=== PATIENT | female | born 1970 | race Asian ===

== ENCOUNTER 2017-10-13 17:20 | Emergency (ER) | payer OTHER ==
[~2017-10-13] VITALS: Ht 157.5 cm; Wt 68.2 kg
[~2017-10-13 17:20] MED LIST: BENICAR; COZAAR; LISINOPRIL; [UNRECOGNIZED DRUG - CODE] PO
[2017-10-13 17:38] VITALS: Ht 157.5 cm; Wt 68.2 kg
[2017-10-13] MEDS ORDERED: KETOROLAC 15 MG INJ IV STA (19:17)
[2017-10-13] MEDS ORDERED: SOD CHLORIDE 0.9% 1,000 ML IV STA (19:17)
--- NOTE | 2017-10-13 19:24 | ERD ---
ER Documentation Chief Complaint Chief Complaint Pt with CP and SOB X 3-4 days, lump to R axillary area. HPI 47-year-old woman complains of sharp nonexertional nonradiating right anterolateral chest pain, which she states radiates down to the right arm. She states the pain is also localized to the right lateral neck and radiates downward to the arm. She says she has had intermittent shortness of breath but denies shortness of breath in the ED. She states she feels a lump to the axillary area on the right. She has no personal or family history of breast carcinoma, no personal risk factors or family history of early coronary artery disease. She denies exertional pain, no cough, no fevers or chills, no vomiting or diarrhea. She states the pain is constant 3 days. She states she does exercise on a regular basis. Patient denies weight loss, no changes to the breast, no discharge from the breast or nipple. No recent trauma or domestic violence. ROS All systems reviewed and are negative except as per history of present illness. Medications Home Meds Active Scripts Tramadol HCl (Tramadol HCl) 50 Mg Tablet, 50 MG PO TID for PAIN AND/OR INFLAMMATION, #20 TAB Prov:JULIO RAMÍREZ MD 10/13/17 Reported Medications Acetaminophen with Codeine (Acetaminophen-Cod #3 Tablet) 1 Each Tablet, 2 TAB PO NEEDED, #7 TAB 10/13/17 Ibuprofen* (Ibuprofen*) 200 Mg Capsule, 600 MG PO Q6 Y for NEEDED, CAP 10/13/17 Amlodipine Besylate* (Norvasc*) 5 Mg Tablet, 2.5 MG PO DAILY, TAB 10/13/17 Carisoprodol* (Carisoprodol*) 350 Mg Tablet, 350 MG PO BID Y for MUSCLE SPASMS, TAB 10/13/17 Benazepril Hcl* (Benazepril Hcl*) 40 Mg Tablet, 40 MG PO BID, #30 TAB 10/13/17 Discontinued Reported Medications [Cozaar] No Conflict Check 02/04/12 [Benicar] No Conflict Check 02/04/12 [Lisinopril] No Conflict Check 02/04/12 Ciprofloxacin Hcl (Cipro) 250 Mg Tablet, 250 MG PO DAILY 11/17/11 Allergies Allergies: Coded Allergies: No Known Allergy (Unverified , 11/17/11) PMhx/Soc Hypertension History of Surgery: No Anesthesia Reaction: No Hx Neurological Disorder: No Hx Respiratory Disorders: No Hx Cardiac Disorders: Yes (HTN) Hx Psychiatric Problems: No Hx Miscellaneous Medical Probl: No Hx Alcohol Use: No Hx Substance Use: No Hx Tobacco Use: Yes FmHx Family History: No diabetes Physical Exam Vitals Vital Signs Date Time Temp Pulse Resp B/P Pulse Ox O2 Delivery O2 Flow Rate FiO2 10/13/17 20:54 97.7 20 99 Room Air 10/13/17 20:53 72 142/98 10/13/17 19:20 67 152/89 10/13/17 19:12 98.2 67 21 97 Room Air 10/13/17 17:38 98.0 77 18 180/95 100 Physical Exam GENERAL: Well-developed, well-nourished, well-hydrated, in no apparent distress , looks nontoxic in appearance HEENT: Moist mucous membranes, pink conjunctiva, no cervical spine tenderness or step-off deformities, no goiter, no jaundice or icterus, extraocular movements intact without pain. No submandibular induration, and no pharyngeal erythema NEURO: Alert and oriented 3, cranial nerves II through XII intact bilaterally, pupils equal round reactive to light, no focal deficits or facial asymmetry, sensation intact distally Strength 5/5 in upper and lower extremities bilaterally CARDIAC: Regular rate and rhythm, no murmurs rubs or gallops LUNGS: Clear bilaterally no wheezing crackles or stridor ABDOMEN: Soft nontender, no guarding, no rigidity, no rebound, no psoas sign no obturator sign. Normoactive bowel sounds SKIN: Warm and dry to touch, no abrasions, contusions, or hematomas, no lacerations, no ecchymosis, no target lesions, and without ulcers EXTREMITIES: No clubbing cyanosis or edema, calves are bilaterally symmetrical, no Homans sign, no popliteal cord sign. Distal pulses equal and bilateral PSYCH: Normal affect without agitation or irritability Result Diagram: 10/13/17193410/13/171934 Results 24 hrs Laboratory Tests Test 10/13/17 19:35 10/13/17 20:01 White Blood Count 8.910^3/ul Red Blood Count 4.3710^6/ul Hemoglobin 13.2g/dl Hematocrit 38.8% Mean Corpuscular Volume 88.8fl Mean Corpuscular Hemoglobin 30.2pg Mean Corpuscular Hemoglobin Concent 34.0g/dl Red Cell Distribution Width 13.0% Platelet Count 19657^3/UL Mean Platelet Volume 9.3fl Neutrophils % 60.9% Lymphocytes % 27.9% Monocytes % 6.6% Eosinophils % 3.5% Basophils % 0.7% Nucleated Red Blood Cells % 0.0/100WBC Neutrophils # 5.410^3/ul Lymphocytes # 2.510^3/ul Monocytes # 0.610^3/ul Eosinophils # 0.310^3/ul Basophils # 0.110^3/ul Nucleated Red Blood Cells # 0.010^3/ul Sodium Level 142mmol/L Potassium Level 3.9mmol/L Chloride Level 105mmol/L Carbon Dioxide Level 26mmol/L Anion Gap 15 Blood Urea Nitrogen 11mg/dl Creatinine 0.66mg/dl Glucose Level 97mg/dl Calcium Level 9.0mg/dl Total Bilirubin 0.1mg/dl Direct Bilirubin 0.00mg/dl Indirect Bilirubin 0.1mg/dl Aspartate Amino Transf (AST/SGOT) 30IU/L Alanine Aminotransferase (ALT/SGPT) 64IU/L Alkaline Phosphatase 84IU/L Troponin I < 0.012ng/ml Total Protein 7.7g/dl Albumin 4.5g/dl Globulin 3.20g/dl Albumin/Globulin Ratio 1.40 Lipase 22U/L Bedside Urine pH (LAB) 6.0 Bedside Urine Protein (LAB) Negative Bedside Urine Glucose (UA) Negative Bedside Urine Ketones (LAB) Negative Bedside Urine Blood Trace-intact Bedside Urine Nitrite (LAB) Negative Bedside Urine Leukocyte Esterase (L Negative Current Medications Medications (Trade) Dose Ordered Sig/Zaire Route PRN Reason Start Time Stop Time Status Last Admin Dose Admin Alprazolam 0.5 mg 0.5 mg ONCE ONCE PO 10/13/17 19:30 10/13/17 19:31 DC 10/13/17 19:55 Sodium Chloride (NS) 1,000 ml @ 1,000 mls/hr Q1H STAT IV 10/13/17 19:17 10/13/17 20:16 DC 10/13/17 19:55 Ketorolac Tromethamine (Toradol) 15 mg ONCE STAT IV 10/13/17 19:17 10/13/17 19:18 DC 10/13/17 20:00 Procedures/MDM IV line was established patient was placed on spareribs trimmer rhythm strip revealed a sinus rhythm at about 70 bpm with upright P and T waves. Patient was afebrile EKG performed, read by me: 70 bpm, normal sinus rhythm, normal axis, no acute ST segment changes, narrow QRS complex, with good R-wave progression in precordial leads. Chest X-ray 1V Interpreted by me: Soft Tissue: No acute abnormalities Bones: No acute abnormalities Mediastinum/Cardiac Silhouette/Lungs: No acute abnormalities I administered 1 L normal saline intravenously, alprazolam 0.5 mg p.o. 1 and Toradol 15 mg IV 1. CBC and electrolytes were normal, liver function tests are normal, troponin was negative. Patient was screened here in the emergency department for various concerning underlying conditions, and workup was negative. Her vital signs are normal, pain is been controlled, and examination was within normal limits. She will have to follow-up with her PMD for continued medical management and possible further imaging as an outpatient. Differential diagnoses considered, included but not limited to acute coronary syndrome, pulmonary embolism, aortic dissection, abdominal aortic aneurysm, sepsis, stroke, meningitis, encephalitis, pneumonia, appendicitis, cholecystitis , bowel obstruction, pyelonephritis, nephrolithiasis, cystitis, as well as metabolic, hematologic, and electrolyte abnormalities. As well as abscess, cellulitis, fractures, and dislocations. Patient feels much better at this time, and vital signs are normal, symptoms have improved. I did give strict instructions to return to the ED if symptoms continue or worsen, patient will otherwise follow-up with primary care physician. Patient understood instructions and agreed to plan. Disclaimer: Inadvertent spelling and grammatical errors are likely due to EHR/ dictation software use and do not reflect on the overall quality of patient care. Also, please note that the electronic time recorded on this note does not necessarily reflect the actual time of the patient encounter. Departure Diagnosis: Primary Impression: Chest pain Chest pain type: unspecified Qualified Code: R07.9 - Chest pain, unspecified type Additional Impressions: Musculoskeletal strain Hypertension Hypertension type: essential hypertension Qualified Code: I10 - Essential hypertension Condition: Good JULIO RAMÍREZ MD Oct 13, 2017 19:24
[2017-10-13] MEDS ORDERED: ALPRAZOLAM 0.25 MG TAB PO ONE (19:30)
[2017-10-13 19:48] LABS: BASOPHIL # 0.1 10^3/ul (0.0-0.1); BASOPHILS % 0.7 % (0.0-2.0); EOSINOPHILS # 0.3 10^3/ul (0.0-0.5); EOSINOPHILS % 3.5 % (0.0-7.0); HEMATOCRIT 38.8 % (37.0-47.0); HEMOGLOBIN 13.2 g/dl (12.0-16.0); LYMPHOCYTES # 2.5 10^3/ul (0.8-2.9); LYMPHOCYTES % 27.9 % (15.0-51.0); MEAN CORPUSCULAR HEMOGLOBIN 30.2 pg (29.0-33.0); MEAN CORPUSCULAR VOLUME 88.8 fl (82.0-101.0); MEAN PLATELET VOLUME 9.3 fl (7.4-10.4); MONOCYTE # 0.6 10^3/ul (0.3-0.9); MONOCYTES % 6.6 % (0.0-11.0); NEUTROPHIL # 5.4 10^3/ul (1.6-7.5); NEUTROPHILS % 60.9 % (39.0-77.0); PLATELET COUNT 311 10^3/UL (140-415); RED BLOOD COUNT 4.37 10^6/ul (4.20-5.40); WHITE BLOOD COUNT 8.9 10^3/ul (4.8-10.8)
[2017-10-13 20:02] LABS: URINE BLOOD (Dip) POC Trace-intact (NEGATIVE)
[2017-10-13 20:11] LABS: ALANINE AMINOTRANSFERASE 64 IU/L (13-69); ALBUMIN 4.5 g/dl (3.3-4.9); ALKALINE PHOSPHATASE 84 IU/L (42-121); ANION GAP 15 (8-16); ASPARTATE AMINO TRANSFERASE 30 IU/L (15-46); BILIRUBIN,INDIRECT 0.1 mg/dl (0-1.1); BILIRUBIN,TOTAL 0.1 mg/dl (0.2-1.3); BLOOD UREA NITROGEN 11 mg/dl (7-20); CARBON DIOXIDE 26 mmol/L (21-31); CHLORIDE 105 mmol/L (97-110); CREATININE 0.66 mg/dl (0.44-1.00); GLUCOSE 97 mg/dl (70-220); POTASSIUM 3.9 mmol/L (3.5-5.1); SODIUM 142 mmol/L (135-144); TOTAL PROTEIN 7.7 g/dl (6.1-8.1)
[2017-10-13 20:23] LABS: TROPONIN-I < 0.012 ng/ml (0.00-0.12)
[2017-10-13] MEDS ORDERED: TRAM50TA2 PO (20:25)
[2017-10-13] MEDS ORDERED: BENA40TA41 PO (20:37)
[2017-10-13] MEDS ORDERED: CARI350T29 PO (20:37)
[2017-10-13] MEDS ORDERED: AMLO5TAB4 PO (20:38)
[2017-10-13] MEDS ORDERED: IBUP200C PO (20:38)
[2017-10-13] MEDS ORDERED: ACET1TAB40 PO (20:39)
--- NOTE | 2017-10-13 20:47 | RADRPT ---
PROCEDURE: XR Chest. CLINICAL INDICATION: Chest pain. TECHNIQUE: AP view of the chest was obtained. COMPARISON: None. FINDINGS: The cardiomediastinal silhouette is within normal limits. The lungs are clear. No signs of pleural f luid or pneumothorax are seen. The osseous structures and soft tissues are unremarkable. IMPRESSION: 1. No evidence for active cardiopulmonary disease. RPTAT: HGAS .Rome Oscar MD, MD Date Time Electronically viewed and signed by .Rome Oscar MD, MD on 10/13/2017 20:46 .S/
[2017-10-13 20:53] VITALS: BP 142/98; PULSE 72
[2017-10-13 20:54] VITALS: RESP 20; TEMP 97.7
== END 2017-10-13 21:30 | disposition home or self-care (01) ==
LOC: E/R 17:20
DX: R07.9 Chest pain, unspecified (principal); I10 Essential (primary) hypertension
CPT/HCPCS: 71010; 80053; 81003; 83690; 84484; 85025; 96374; J1885; J7030; Z7502; Z7610; 93005

== ENCOUNTER 2019-01-23 05:22 | Day surgery (SDC) | payer OTHER ==
[2019-01-22 13:29] VITALS: BMI 27.7
[2019-01-23] VITALS (12 sets, daily range): BP systolic 119–140; BP diastolic 59–78; PULSE 73–94; RESP 14–21; Ht 157.5 cm; Wt 69.5 kg
[~2019-01-23] VITALS: Ht 157.5 cm; Wt 69.5 kg
[~2019-01-23 05:22] MED LIST changes: +ACET1TAB40 PO; +AMLO5TAB4 PO; +BENA40TA56 PO; -BENICAR; +CARI350T29 PO; -COZAAR; +IBUP-1982 PO; -LISINOPRIL; +TRAM50TA2 PO; -[UNRECOGNIZED DRUG - CODE] PO
[2019-01-23] MEDS ORDERED: AMLO5TAB4 PO (06:32)
[2019-01-23] MEDS ORDERED: BENA40TA56 PO (06:33)
--- NOTE | 2019-01-23 07:16 | PREAC ---
Date/Time of Note Date/Time of Note DATE: 01/23/19 TIME: 07:14 Anesthesia Eval and Record Evaluation Time Pre-Procedure Interview DATE: 01/23/19 TIME: 07:14 Age 48 Sex female NPO: 8 hrs Preoperative diagnosis abnormal pap smear Planned procedure D&C HYSTEROSCOPY Past Medical History Past Medical History: Includes Cardio: HTN Pulm: Smoking Hx Surgery & Anesthesia Issues No known issue Meds Anticoagulation: No Beta Christelle within 24 hr: No Reason Beta Christelle not given: Pt. not on B-Christelle Reported Medications Benazepril Hcl* (Benazepril Hcl*) 40 Mg Tablet, 40 MG PO DAILY, #30 TAB 01/23/19 Amlodipine Besylate* (Norvasc*) 5 Mg Tablet, 5 MG PO DAILY, TAB 01/23/19 Discontinued Reported Medications Acetaminophen with Codeine (Acetaminophen-Cod #3 Tablet) 1 Each Tablet, 2 TAB PO NEEDED, #7 TAB 10/13/17 Ibuprofen* (Ibuprofen*) 200 Mg Capsule, 600 MG PO Q6 PRN for NEEDED, CAP 10/13/17 Amlodipine Besylate* (Norvasc*) 5 Mg Tablet, 2.5 MG PO DAILY, TAB 10/13/17 Carisoprodol* (Carisoprodol*) 350 Mg Tablet, 350 MG PO BID PRN for MUSCLE SPASMS, TAB 10/13/17 Benazepril Hcl* (Benazepril Hcl*) 40 Mg Tablet, 40 MG PO BID, #30 TAB 10/13/17 Discontinued Scripts Tramadol HCl (Tramadol HCl) 50 Mg Tablet, 50 MG PO TID for PAIN AND/OR INFLAMMATION, #20 TAB Prov:JULIO RAMÍREZ MD 10/13/17 Meds reviewed: Yes Allergies Coded Allergies: No Known Allergy (Unverified , 01/23/19) Allergies Reviewed: Yes Labs/Studies Labs Reviewed: Reviewed by anesthesiologist Blood Bank Test 01/22/19 13:01 Antibody Screen NEGATIVE Blood Type O POSITIVE test: Negative Studies: ECG (NL), CXR (NAPD) Pre-procedure Exam Last vitals Vital Signs Date Temp Pulse Resp B/P (MAP) Pulse Ox O2 O2 Flow FiO2 Time Delivery Rate 01/23/19 97.7 73 16 120/78 99 Room Air 06:25 (92) Airway: Adequate mouth opening, Adequate thyromental dist Mallampati: Mallampati II Teeth: Normal Lung: Normal Heart: Normal ASA Physical Status ASA physical status: 2 Emergency: None Planned Anesthetic General/MAC: ETT Planned Pain Management Parenteral pain med Pre-operative Attestations Prior to commencing anesthesia and surgery, the patient was re-evaluated, there was verification of: *The patient's identity *The results of appropriate recent lab work and preoperative vital signs *The above evaluation not changing prior to induction *Anesthetic plan, risk benefits, alternative and complications discussed with patient/family; questions answered; patient/family understands, accepts and wishes to proceed. Edgar Flores M.D. Jan 23, 2019 07:15
[2019-01-23] MEDS ORDERED: CEFAZOLIN 1 GM INJ ONE (07:21)
[2019-01-23] MEDS ORDERED: GLYCOPYRROLATE 0.4 MG INJ ONE (07:21)
[2019-01-23] MEDS ORDERED: PROPOFOL 20 ML ONE (07:21)
[2019-01-23] MEDS ORDERED: ROCURONIUM 50 MG INJ ONE (07:21)
[2019-01-23] MEDS ORDERED: MIDAZOLAM 1 MG/ML 2 ML INJ ONE (07:22)
[2019-01-23] MEDS ORDERED: FENTAnyl 50 MCG/ML VIAL ONE (07:22)
[2019-01-23] MEDS ORDERED: DEXAMETHASONE 4 MG/ML 5 ML INJ ONE (07:23)
[2019-01-23] MEDS ORDERED: ONDANSETRON 4 MG INJ ONE (07:23)
[2019-01-23] MEDS ORDERED: ONDANSETRON 4 MG INJ IV PRN (07:30)
[2019-01-23] MEDS ORDERED: LABETALOL HCL 20MG INJ IV PRN (07:30)
[2019-01-23] MEDS ORDERED: MIDAZOLAM 1 MG/ML 2 ML INJ IV PRN (07:30)
[2019-01-23] MEDS ORDERED: HYDROmorphONE 1 MG/5 ML IV SYRINGE IV PRN ×3 (07:30)
[2019-01-23] MEDS ORDERED: ALBUTEROL 0.083% (NEB) 2.5 MG/3 ML AMP HHN PRN (07:30)
[2019-01-23] MEDS ORDERED: FENTAnyl 50 MCG/ML VIAL IV PRN ×3 (07:30)
[2019-01-23] MEDS ORDERED: hydrALAzine 20 MG INJ IV PRN (07:30)
[2019-01-23] MEDS ORDERED: OXYCODONE/ACETAMINOPHEN (5/325) TAB PO PRN ×2 (07:30)
[2019-01-23] MEDS ORDERED: IPRATROPIUM (NEB) 0.5 MG/2.5 ML AMP HHN PRN (07:30)
[2019-01-23] MEDS ORDERED: TRIMETHOBENZAMIDE 100 MG/ML VIAL IM PRN (07:30)
[2019-01-23] MEDS ORDERED: EPHEDrine SULFATE 50 MG/5 ML SYG IV PRN (07:30)
[2019-01-23] MEDS ORDERED: MEPERIDINE 25 MG INJ IV PRN (07:30)
[2019-01-23] MEDS ORDERED: DIPHENHYDRAMINE 50 MG INJ IV PRN (07:30)
--- NOTE | 2019-01-23 07:57 | PREOPHP ---
DATE OF ADMISSION: 01/23/2019 HISTORY OF PRESENT ILLNESS: This is the 48-year-old lady, 0. Her last normal menstrual vijay od was a few days prior to admission. She was admitted for D and C, hysteroscopy and suction curetta ge. This patient had an ultrasound done and showed endometrial thickening of 17.1 mm. The patient r efused to go for endometrial biopsy as she claims that she is not sexually active and that is too kathryn nful for her to have a pelvic exam. So, she was admitted for the above procedure. The procedures we re explained to the patient and she understood everything totally. The risks, benefits, and alternat lori were discussed with her as well. PAST PERSONAL HISTORY: No history of diabetes, TB, asthma. ALLERGIES: NONE. PAST MEDICAL HISTORY: The patient has a history of hypertension. PAST SURGICAL HISTORY: None. FAMILY HISTORY: Mother and father have diabetes and hypertension. She is 0. MEDICATIONS: She is presently taking medication for her high blood pressure. GYNECOLOGIC HISTORY: She had menarche at the age of 18, every 28 days interval, 3 to 4 days duration , and moderate in amount. REVIEW OF SYSTEMS: CARDIOVASCULAR: No chest pains. RESPIRATORY: No cough. GASTROINTESTINAL: No diarrhea, no vomiting. GENITOURINARY: No dysuria. PHYSICAL EXAMINATION: GENERAL: Reveals a conscious, coherent lady and in no acute distress. VITAL SIGNS: Blood pressure 120/80, pulse rate 80 per minute, respirations 16 per minute. BREASTS, HEART AND LUNGS: Within normal limits. ABDOMEN: Soft. No organomegaly. PELVIC: Revealed the cervix to be firm, uterus of upper limit of normal. Uterus about 8 weeks' size , and adnexa were negative for masses. RECTAL: Confirmed the pelvic findings. EXTREMITIES: No pedal edema. ADMITTING DIAGNOSES: Endometrial thickening and a fibroid uterus. The patient is planned to have th e D and C, hysteroscopy and suction curettage. The procedures were explained to her and she understo od everything totally. The risks, benefits and alternatives were discussed with her as well. She re fused endometrial biopsy. Dictated By: GELACIO SAUNDERS/NTS Conf#: [id number] DID#: [id number]
--- NOTE | 2019-01-23 08:04 | PAC ---
Date/Time of Note Date/Time of Note DATE: 01/23/19 TIME: 08:04 Post-Anesthesia Notes Post-Anesthesia Note Last documented vital signs Vital Signs Date Temp Pulse Resp B/P (MAP) Pulse Ox O2 O2 Flow FiO2 Time Delivery Rate 01/23/19 97.7 73 16 120/78 99 Room Air 08:04 (92) Activity: WNL Respiratory function: WNL Cardiovascular function: WNL Mental status: Baseline Pain reasonably controlled: Yes Hydration appropriate: Yes Nausea/Vomiting absent: Yes Edgar Flores M.D. Jan 23, 2019 08:04
--- NOTE | 2019-01-23 08:38 | SIPON ---
Date/Time of Note Date/Time of Note DATE: 01/23/19 TIME: 08:37 Operative Report Preoperative Diagnosis ENDOMETRIAL THICKENING Postoperative Diagnosis ENDOMETRIAL THICKENING R/O ENDOMETRIAL POLYP R/O ENDOMETRIAL HYPERPLASIA Operation/Procedure Performed D&C HYSTEROSCOPY SUCTION CURETTAGE Surgeon see signature line rn first assistant CUSTOMER ENGAGEMENT MANAGER Anesthesia: general Estimated blood loss: minimal Transfusion Required none Specimen ECC EMC SUCTION CURETTAGE Grafts/Implants none Complications none GELACIO VELÁSQUEZ MD Jan 23, 2019 08:38
[2019-01-23] MEDS ORDERED: ACETAMINOPHEN 325 MG TAB PO PRN (09:00)
--- NOTE | 2019-01-27 08:55 | OPR ---
DATE OF OPERATION: 01/23/2019 PREOPERATIVE DIAGNOSIS: Endometrial thickening, fibroid uterus, rule out endometrial hyperplasia. POSTOPERATIVE DIAGNOSIS: 1. Endometrial thickening, fibroid uterus, rule out endometrial hyperplasia. 2. Pending pathology report. SURGEON: Gelacio Quiñones MD CATERPILLAR MECHANIC: Lilian faith. ANESTHESIA: General. ANESTHESIOLOGIST: Dr. Isbell. OPERATION PERFORMED: Hysteroscopy, fractional dilatation and curettage and suction curettage. OPERATIVE TECHNIQUE: Under general anesthesia, the patient was prepped and draped in the usual fashi on for vaginal surgery. Pelvic exam under anesthesia revealed the cervix to be firm, uterus about 8 weeks' size, and adnexa were negative for masses. Then, the heavy weight vaginal retractor was put i n place and the anterior lip of the cervix was grasped with an Allis clamp. Endocervical dilatation up to Hegar 6 was proceeded. Uterus sounded to about 3 inches. Then the hysteroscope was inserted i nside the uterine cavity and connected with a light source. The uterus was distended with normal sinan ine. There were no polyps nor fibroids seen and the cervical curettage was done and a small amount o f tissue was obtained. Endometrial curettage was done and a lot of tissue was obtained. Suction tip size 6 was inserted inside the uterine cavity and connected with the suction machine. Suction curet tage was done and good amount of tissue was obtained. The uterus was intact during and after the pro cedure. The patient tolerated the procedure well. Estimated blood loss was minimal. Vital signs we re stable during and after the procedure. Dictated By: GELACIO SAUNDERS/LIBBY Conf#: [id number] DID#: [id number]
== END 2019-01-23 09:24 | disposition home or self-care (01) ==
LOC: SDS 05:22
PROVIDERS: ATTEND Obstetrics & Gynecology
DX: D25.9 Leiomyoma of uterus, unspecified (principal); R93.89 Abnormal findings on diagnostic imaging of other specified body structures; I10 Essential (primary) hypertension; E55.9 Vitamin D deficiency, unspecified; F17.200 Nicotine dependence, unspecified, uncomplicated
CPT/HCPCS: 58558; 84703; 86850; 86900; 86901; 88305; J0690; J1100; J1170; J2250; J2405; J3010; Z7512; Z7610